=== PATIENT | female | born 1970 | race Caucasian/White ===

== ENCOUNTER → 2019-05-01 | Outpatient (CLI) | payer MEDICAID, SELFPAY ==
[2019-05-01 13:42] VITALS: BMI 21.3
[2019-05-14 11:11] LABS: HPV APTIMA, High Risk Negative (Negative)
== END | disposition home or self-care (01) ==
LOC: LABSPEC 16:15
PROVIDERS: Family Provider Family Medicine; PCP Family Medicine; Referring Provider Nurse Practitioner Women's Health; Visit Provider Nurse Practitioner Women's Health
DX: Z12.4 Encounter for screening for malignant neoplasm of cervix (principal)
CPT/HCPCS: 87624; 88175; G0145

== ENCOUNTER → 2019-05-17 08:07 | Outpatient (CLI) | payer MEDICAID, SELFPAY ==
[2019-05-01 13:42] VITALS: BMI 21.3
--- NOTE | 2019-05-17 08:08 | US_ITS ---
HISTORY:irregular menses irregular menses EXAMINATION: US Pelvis Non OB Complete With Transvaginal Imaging TECHNIQUE: Transabdominal and transvaginal (for optimal evaluation of the adnexa) pelvic ultrasound was performed. Grayscale, spectral waveform, and color flow Doppler evaluation of the adnexa. COMPARISON: None FINDINGS: UTERUS: retroverted. The uterus measures 11.6 x 0.6 x 5.7 cm. Numerous heterogenous areas within the uterus most compatible with uterine fibroids largest measuring 5.0 x 4.7 x 3.5 cm. If additional imaging is warranted consider MRI with contrast for further evaluation. The endometrial stripe measures 9 mm in AP diameter which is within normal limits. RIGHT OVARY: 3.8 x 4.0 x 2.3 cm. there is a 2.4 x 2.9 x 1.7 cm cystic area within the right ovary that has a lacy appearance. This may represent a hemorrhagic cyst.. There is vascular flow seen within the right ovary LEFT OVARY: None visualized due to overlying bowel gas.... Non-enlarged, normal echogenicity. FREE FLUID: None. US/Pelvic (Non ) IMPRESSION: Multiple suspected uterine fibroids. If additional imaging is warranted consider MRI with contrast There is a right ovarian cyst with internal septations. This most likely represents a hemorrhagic cyst. Consider follow-up in 6-12 weeks or sooner if clinically indicated Nonvisualization of left ovary at 0124 Reported and signed by: Ifeoma Khalil DO Electronically Signed: Ifeoma Khalil DO at 1:23 EDT Tel , Service support ,
--- NOTE | 2019-05-17 08:08 | US_ITS ---
HISTORY:irregular menses irregular menses EXAMINATION: US Pelvis Non OB Complete With Transvaginal Imaging TECHNIQUE: Transabdominal and transvaginal (for optimal evaluation of the adnexa) pelvic ultrasound was performed. Grayscale, spectral waveform, and color flow Doppler evaluation of the adnexa. COMPARISON: None FINDINGS: UTERUS: retroverted. The uterus measures 11.6 x 0.6 x 5.7 cm. Numerous heterogenous areas within the uterus most compatible with uterine fibroids largest measuring 5.0 x 4.7 x 3.5 cm. If additional imaging is warranted consider MRI with contrast for further evaluation. The endometrial stripe measures 9 mm in AP diameter which is within normal limits. RIGHT OVARY: 3.8 x 4.0 x 2.3 cm. there is a 2.4 x 2.9 x 1.7 cm cystic area within the right ovary that has a lacy appearance. This may represent a hemorrhagic cyst.. There is vascular flow seen within the right ovary LEFT OVARY: None visualized due to overlying bowel gas.... Non-enlarged, normal echogenicity. FREE FLUID: None. US/Transvaginal Non- IMPRESSION: Multiple suspected uterine fibroids. If additional imaging is warranted consider MRI with contrast There is a right ovarian cyst with internal septations. This most likely represents a hemorrhagic cyst. Consider follow-up in 6-12 weeks or sooner if clinically indicated Nonvisualization of left ovary at 0124 Reported and signed by: Ifeoma Khalil DO Electronically Signed: Ifeoma Khalil DO at 1:23 EDT Tel , Service support ,
== END ==
PROVIDERS: Family Provider Family Medicine; PCP Family Medicine; Referring Provider Nurse Practitioner Women's Health; Visit Provider Nurse Practitioner Women's Health
DX: N92.6 Irregular menstruation, unspecified (principal)
CPT/HCPCS: 76830; 76856

== ENCOUNTER → 2019-05-21 08:23 | Outpatient (CLI) | payer MEDICAID, SELFPAY ==
--- NOTE | 2019-05-21 | EMB_PTH ---
PATIENT: LAMIN JOHNSON LOC: [facility] U#:[id number] AGE/SX: 55/F ROOM: RE05/21/[address]: WILLIE Perez : 1970 BED: DIS: SPEC #: [id number] RECD: 05/21/19 17:23 STATUS: JABIER YARA #: [id number] DANIEL: 05/21/19 00:[address]: Alice Courtney NP DEPT: SURGICAL PATHOLOGY RECD BY: Crescencio Guevara ENTERED: 05/22/19 09:08 SP TYPE: ENDOM BX/C MELLO DR: MD Cem Mcdonough MD Tissues: Endometrium, NOS Procedures: Surgery Specimen Level IV HEADER OPERATION: Endometrial biopsy PRE-OP DIAGNOSIS: Abnormal uterine bleeding TISSUE SUBMITTED: Endometrial biopsy MICROSCOPIC DIAGNOSIS Endometrium, biopsy: Transition endometrium with stromal and focal glandular breakdown. AM:zachary 05/23/19 MICROSCOPIC DESCRIPTION Slides are reviewed. GROSS DESCRIPTION Received is one container labeled with the patient's name and not further designated. The specimen consists of multiple fragments of hemorrhagic soft tissue that in aggregate measure 3 x 2.5 x 0.2 cm. The entire specimen is submitted in one cassette. / SJ:zachary 05/22/19 TC:5 CPT: 59212
[2019-05-21 10:38] VITALS: BMI 21.5
== END ==
PROVIDERS: Family Provider Family Medicine; PCP Family Medicine; Referring Provider Nurse Practitioner Women's Health; Visit Provider Nurse Practitioner Women's Health
DX: N93.9 Abnormal uterine and vaginal bleeding, unspecified (principal)
CPT/HCPCS: 88305

== ENCOUNTER → 2022-08-18 | Outpatient (CLI) | payer MEDICAID, SELFPAY ==
--- NOTE | 2022-08-18 16:08 | BI_ITS ---
MAMMOGRAPHY - BILATERAL SCREENING REASON FOR EXAM: Female, 52 years old. Routine annual screening examination. PERTINENT HISTORY: Sister with breast cancer. Aunt with breast cancer. History of prior right and left excisional breast biopsies. TECHNIQUE: Digital bilateral breast perico (3D mammographic acquisition) in the CC and MLO projections. 2-D mediolateral oblique (MLO) and craniocaudad (CC) views of both breasts were obtained. CAD: Full Field Digital Mammography with Computer Added Detection was performed. COMPARISON: Comparison is made with prior examination dated 01/14/2011. FINDINGS: Breast Composition: The breasts are heterogeneously dense, which may obscure small masses. There are no dominant masses or suspicious calcifications. No other significant abnormalities are identified. There has been no significant change since the prior study. BI/SCRN MAMM (CAD)W/PERICO BILAT IMPRESSION: Stable bilateral screening mammogram. Yearly follow-up mammogram recommended. (A) ASSESSMENT CATEGORY: BIRADS Category 2: Benign. A letter regarding these results will be sent to the patient by the facility within 30 days. Approximately 10% of breast cancers are not detected by mammography. A normal mammogram should not delay biopsy of a clinically suspicious abnormality. [id number] Electronically Signed: Sunny Angeles MD at 8:12 EST ,
== END | disposition home or self-care (01) ==
LOC: OPBI 16:07
PROVIDERS: PCP Family Medicine; Referring Provider Nurse Practitioner Women's Health; Visit Provider Nurse Practitioner Women's Health
DX: Z12.31 Encounter for screening mammogram for malignant neoplasm of breast (principal); Z80.3 Family history of malignant neoplasm of breast
CPT/HCPCS: 77063; 77067

== ENCOUNTER → 2022-08-25 | Outpatient (CLI) | payer MEDICAID, SELFPAY ==
--- NOTE | 2022-08-25 15:10 | EMB_PTH ---
PATIENT: LAMIN JOHNSON LOC: [facility] U#:[id number] AGE/SX: 52/F ROOM: RE08/25/[address]: WILLIE Perez : 1970 BED: DIS: 08/25/2022 SPEC #: [id number] RECD: 08/25/22 16:24 STATUS: JABIER REJorgito #: [id number] DANIEL: 08/25/22 15:[address]: Alice Courtney NP DEPT: SURGICAL PATHOLOGY RECD BY: Crescencio Guevraa ENTERED: 08/26/22 09:12 SP TYPE: ENDOM BX/C MELLO DR: Cem Cadena MD Tissues: Endometrium, NOS Procedures: Surgery Specimen Level IV HEADER OPERATION: Endometrial biopsy PRE-OP DIAGNOSIS: Abnormal uterine bleeding TISSUE SUBMITTED: Endometrial tissue MICROSCOPIC DIAGNOSIS Endometrium, biopsy: Weakly proliferative endometrium. AM:zachary 08/30/2022 MICROSCOPIC DESCRIPTION Slides are reviewed. GROSS DESCRIPTION Received is one container labeled with the patient's name and not further designated. The specimen consists of multiple fragments of hemorrhagic soft tissue that in aggregate measure 2.5 x 2 x 0.2 cm. The specimen is totally submitted in one cassette. / SJ:zachary 08/26/2022 TC:5 CPT: 73581
[2022-09-02 17:33] LABS: HPV APTIMA, High Risk Negative (Negative)
== END | disposition home or self-care (01) ==
PROVIDERS: PCP Family Medicine; Referring Provider Nurse Practitioner Women's Health; Visit Provider Nurse Practitioner Women's Health
DX: N93.9 Abnormal uterine and vaginal bleeding, unspecified (principal)
CPT/HCPCS: 87624; 88175; 88305; G0145

== ENCOUNTER → 2022-08-31 | Outpatient (CLI) | payer MEDICAID, SELFPAY ==
--- NOTE | 2022-08-31 15:43 | US_ITS ---
EXAM: US PELVIS TRANSABDOMINAL AND TRANSVAGINAL, COMPLETE CLINICAL INDICATION: IRREG BLEEDING TECHNIQUE: Transabdominal and transvaginal pelvic ultrasound was performed with grayscale and color Doppler imaging. Transvaginal imaging was used for better evaluation of the endometrium and adnexa. This report was created using [employer] technology. COMPARISON: None. FINDINGS: UTERUS/CERVIX: Uterus measures 7.4 x 6.9 x 7.3 cm. The endometrium measures 5 mm. There are multiple hypoechoic structures within the uterus largest measuring 3.5 x 3.0 x 2.9 cm compatible with multiple uterine fibroids. Anteverted. RIGHT OVARY: Unremarkable. Non-enlarged, normal echogenicity. Blood flow is present in the right ovary. LEFT OVARY: Unremarkable. Non-enlarged, normal echogenicity. Blood flow is present in the left ovary. FREE FLUID: None. BLADDER: The bladder measures 14.1 x 3.6 x 10.4 cm. US/Pelvic (Non ) IMPRESSION: Multiple hypoechoic structures in the uterus compatible with multiple uterine fibroids. Electronically Signed: Prashanth Rice MD at 21:19 EST ,
== END | disposition home or self-care (01) ==
LOC: US 15:41
PROVIDERS: PCP Family Medicine; Referring Provider Nurse Practitioner Women's Health; Visit Provider Nurse Practitioner Women's Health
DX: N92.1 Excessive and frequent menstruation with irregular cycle (principal); D25.9 Leiomyoma of uterus, unspecified
CPT/HCPCS: 76830; 76856

== ENCOUNTER 2022-10-18 05:21 | Day surgery (SDC) | payer MEDICAID, SELFPAY ==
[2022-10-12 10:39] LABS: Hematocrit 40.6 % (37-47); Hemoglobin 12.9 g/dL (12.0-15.0); Mean Corp Hgb Conc 31.8 g/dL (32-36); Mean Corpuscular Hgb 29.1 pg (27.0-32.0); Mean Corpuscular Volume 91.6 fL (81-99); Mean Platelet Vol. 10.7 fl (6.2-12.0); Platelet Count 282 K/mm3 (150-450); RBC Distribution Width CV 13.9 % (11.6-14.6); RBC Distribution Width SD 46.9 fl (35.1-43.9); Red Blood Count 4.43 M/mm3 (4.2-5.4); White Blood Count 7.3 K/mm3 (4.4-11.0)
[2022-10-18] VITALS (7 sets, daily range): BP systolic 114–154; BP diastolic 70–83; PULSE 68–82; RESP 16–18; TEMP 36.4–36.7; O2SAT 94–100; BMI 27.3
[2022-10-18] MEDS: Magnesium 1 GM over 15 mins IV (05:55)
[2022-10-18] MEDS: Lactated Ringers 1,000 ML 40 ML IV (06:09)
[2022-10-18] MEDS: Celecoxib 200 MG Capsule 400 MG PO (06:10)
[2022-10-18] MEDS: Phenazopyridine 95 MG Tablet 190 MG PO (06:10)
[2022-10-18] MEDS: Gabapentin 600 MG Tablet PO (06:11)
[2022-10-18] MEDS: Acetaminophen 500 MG Tablet 1000 MG PO (06:11)
[2022-10-18] MEDS: dexAMETHasone 10 MG/ML Vial 8 MG IV (06:24)
[2022-10-18 06:44] LABS: Internal QC Validated? YES +Cl - CLEAR BKGD; Pregnancy, Serum, hCG Quali. NEGATIVE Negative
[2022-10-18 07:00] LABS: Bedside Glucose 91 mg/dL (74-106)
--- NOTE | 2022-10-18 07:09 | HP.PCM_ITS ---
History and Physical Date of Admission: 10/18/22 Intake Vital Signs ? 09/14/2313:55 09/14/2313:55 Height 5 ft 7 in 5 ft 7 in Weight: 177 lb 2 oz ? BMI 27.7 ? BP 147/85 H ? Intake Visit Reasons:?discuss surgical management Community Health Program Coordinator Required: No Is patient in pain?: No Allergies No Known Allergies Allergy (Verified 09/14/22 14:55) Medications NK? 05/01/19 [History Confirmed 09/14/22] Post menopausal: No Patient : No : No PFSH Surgical History? S/P bilateral breast lumpectomy S/P S/P tubal ligation Family History? Grandfather Heart disease DiabetesGrandmother Heart disease DiabetesAunt Breast cancer Colon cancerMother blood clots Social History? Smoking Status:? Current every day smoker alcohol intake:? never substance use type:? does not use caffeine:? Yes what type of physical activity do you participate in:? none seatbelt use:? always do you feel safe at home:? Yes additional social history:? -[facility] Patient is not working ? HPI discuss surgical management Details: LAMIN JOHNSON is a 52 year old (one for cord prolapse and 4 vaginal delivery) who presents for discussion about hysterectomy. She has a 7 cm uterus with multiple small fibroids (larges 3 cm) and some minor pelvic prolpase without symptoms. She suffers with heavy menses that last anywhere from 1 to 2 weeks at a time and some months she only gets a 1 week break. She is not interested in ablation, IUD, or hormone therapy. EMB last month was benign. She lifts very heavy things for work and is not willing to give that up just yet. ? History ? ? ? 5 ? Elective abortions ? Hx Para ? ? ? 5 ? Spontaneous abortions ? Hx # Term Pregnancies ? Ectopic pregnancies ? Hx # Pregnancies ? Multiple births ? # of living children ? Past Pregnancies Del. Date Name GA/Weeks Outcome Route Bth Weight Infant Gen Labor Lgth Anesthesia Del Locatn Provider FOB Unknown Georgina-1987 ? Unknown Burketara-1988 ? Unknown Ed-1989 ?A ? Unknown Meek-1990 ? Unknown Doris-1991 ? ROS Const ROS Unobtainable: All systems reviewed & are unremarkable except as noted in H Resp Resp: Reports system reviewed and no additional complaints, except as documented; Denies cough GI GI: Reports as per HPI Psych Psych: Reports system reviewed and no additional complaints, except as documented Exam Const General: cooperative, healthy appearing, comfortable and no acute distress Resp Effort & Inspection: normal respiratory effort General: bimanual renal exam normal bilaterally External Female Exam: normal appearance of the urethra Urethra: normal appearance of the urethra Speculum Exam - Vagina: normal appearance of the vagina Speculum Exam - Cervix: normal appearance of the cervix Bimanual Exam- Adnexa, other: normal adnexae and other (mild prolapse of anterior, posterior, and side kelley of the vagina) Skin General: no rashes or lesions noted Psych Appearance: grossly normal Speech and Movement: speech and movement normal Coding Level of Care Code Off vis,est,level 4 Diagnoses Cystocele and rectocele with incomplete uterovaginal prolapse? N81.2 Menorrhagia with irregular cycle? N92.1 Fibroid, uterine? D25.9 ? ? ? Uterine leiomyoma location: unspecified location Assessment and Plan Assessment and Plan (1) Cystocele and rectocele with incomplete uterovaginal prolapse: ?Status:?Acute ?Plan: pt is not yet ready to change her lifestyle and wants to hold off on vaginal repair. (2) Menorrhagia with irregular cycle: ?Status:?Acute (3) Fibroid, uterine: ?Status:?Acute ?Qualifiers: ?Uterine leiomyoma location:?unspecified location? Qualified Code(s):? D25.9 - Leiomyoma of uterus, unspecified ?Plan: After discussing the patient's diagnosis and treatment plan options, patient wishes to proceed with surgical management.? I have discussed with the patient the risks, benefits, and alternatives of the procedure which include but are not limited to risks of anesthesia, bleeding, infection, possible damage to bowel, bladder, or surrounding vasculature which could lead to additional surgery to evaluate any complications.? Patient agrees to procedure and wishes to proceed.? ACOG/uptodate references given for additional information regarding procedure.? plan to proceed with vaginal hysterectomy with cystoscopy. UPDATE- I have seen the patient and performed any clinically relevant updates to the history and physical exam. Roseline Perez, DO
--- NOTE | 2022-10-18 07:10 | PCM.DC ---
Discharge Instructions Diet Discharge Diet: No restrictions Activity Discharge Activity: Return to Normal Activity, May Not Drive (while taking narcotic pain medications.) and May Shower May resume sexual activity in: 6-8 weeks Dressing / Incision Call your doctor if your incision/area has: Continuous Slow Oozing, Sudden Increased Bleeding, Increased Pain/ Swelling, Increased Redness and Foul Smelling Discharge Call your doctor if you observe: Fever of 101 or Higher, Inability to urinate, Inability to have a bowel movement and Using more than 1 pad per hour Follow Up Care Please Follow Up With: Roesline Perez DO Test Results: Test results from this visit will be discussed in further detail at your follow-up appointment, if applicable. Discharge Plan Admission Primary Reason for Your Visit: hysterectomy Attending Provider: Roseline Perez Primary Care Provider: Cem Cadena Instructions Patient Instructions: Hysterectomy Home Care Discharge Orders/Prescriptions Prescriptions: New oxycodone-acetaminophen [Percocet] 5-325 mg tablet 1 tab PO Q4H PRN (Reason: pain) 7 Days Qty: 30 0RF Rx Instructions: 1-2 tabs q 4 hrs as needed for pain naproxen 500 mg tablet 500 mg PO BID PRN (Reason: pain) Qty: 30 0RF Other Ambulatory Orders: ,Urine (Routine) Timeframe: 20221018 Facility: [facility] - Location: Laboratory Ordered By: Dr. Roseline Perez Referrals / Follow Up: Cem Cadena MD [Primary Care Provider] - Disposition Disposition (needs filled in before D/C Order can be placed): Home, Self Care
--- NOTE | 2022-10-18 07:30 | HYST_PTH ---
PATIENT: LAMIN JOHNSON LOC: [facility] U#:[id number] AGE/SX: 52/F ROOM: RE10/18/[address]: Dr. Roseline Perez DO : 1970 BED: DIS: 10/18/2022 SPEC #: [id number] RECD: 10/18/22 12:17 STATUS: JABIER LIVINGSTON #: [id number] DANIEL: 10/18/22 07:[address]: Roseline Perez DEPT: SURGICAL PATHOLOGY RECD BY: Estela Edmond ENTERED: 10/18/22 13:00 SP TYPE: HYSTERECT OTHR DR: Dr. Cem Cadena MD Tissues: Uterus, NOS Procedures: Surgery Specimen Level V HEADER OPERATION: Vaginal hysterectomy, bilateral salpingectomy, cysto, ERAS PRE-OP DIAGNOSIS: Menorrhagia, fibroid uterus TISSUE SUBMITTED: Uterus, cervix, bilateral fallopian tubes, fibroids MICROSCOPIC DIAGNOSIS Uterus, cervix, bilateral fallopian tubes, fibroids, hysterectomy and bilateral salpingectomy: Cervix ? chronic cystic cervicitis and squamous metaplasia. Endometrium ? simple cystic endometrial hyperplasia without atypia. Myometrium ? intramural and subserosal leiomyomas (largest measuring 4.0 in greatest dimension). - Focal adenomyosis. Bilateral fallopian tubes - no pathologic diagnosis. Bilateral paratubal cysts. SJ:rg 10/19/2022 COMMENT Please make reference to previous specimen ([id number]), endometrium, biopsy with diagnosis of ?weakly proliferative endometrium.? MICROSCOPIC DESCRIPTION Slides are reviewed. GROSS DESCRIPTION Received in fixative is one container labeled with the patient's name and designated uterus, fibroid, cervix, bilateral fallopian tubes. The specimen consists of a hysterectomy specimen consisting of uterus with cervix, a detached nodular mass and bilateral detached fallopian tubes. The uterus with detached nodular mass weighs in aggregate 270 gm. The body of the uterus is deformed due to the presence of subserosal nodular masses and measures 14.0 x 10.0 x 8.0 cm. The detached nodular mass measures 2.0 cm in greatest dimension. The serosal surface is pacheco, glistening. The ectocervical mucosa is unremarkable. The external os is oval and patulous in contour. The endocervical canal measures 4.0 cm in length and the endocervical mucosa is pacheco, glistening and unremarkable. Sections of the cervix reveal multiple cysts filled with mucoid material. The triangular endometrial cavity measures 5.0 cm in length and 3.5 cm in width. The endometrium is pacheco, glistening without any mass lesion and measures 0.5 cm in thickness. Sections of the uterine wall reveal multiple intramural and subserosal nodular masses. The largest mass measures 4.0 cm in greatest dimension. Sections of these masses reveal pacheco whorled cut surfaces without areas of hemorrhage, necrosis or cystic degeneration. The uninvolved uterine wall measures up to 4.0 cm in thickness. The detached fallopian tube measures 2.0 cm in length and 0.8 cm in diameter and 3.5 cm in length and 0.5 cm in diameter. The fimbrial end is identified. Sections reveal unremarkable cut surfaces. Paratubal cysts are noted in both fallopian tubes measuring 0.5 to 0.8 cm in greatest dimension. [employer] sections are submitted in 12 cassettes as follows: 1 - anterior cervix, 2 - posterior cervix, 3 & 4 - anterior uterine wall, 5 & 6 - posterior uterine wall, 7 - largest nodular mass, 8??second largest nodular mass, 9 - third largest nodular mass, 10 - detached nodular mass, 11 - one fallopian tube and adjacent paratubal cyst, 12 - second fallopian tube and adjacent paratubal cyst. / SJ:zachary 10/18/2022 TC:1 CPT: 69527
[2022-10-18] MEDS: Cefazolin 2 GM in 0.9% Normal Saline 100 ML IV (07:33)
[2022-10-18] MEDS: Bupivacaine 0.25% 30 ML Vial (07:49)
[2022-10-18] MEDS: Ondansetron 4 MG/2 ML Vial IV (08:54)
[2022-10-18] MEDS: Lactated Ringers @ 70 MLS/HR 70 ML IV (09:20)
--- NOTE | 2022-10-18 09:24 | OP.PCM_ITS ---
Problems Associated Problem List Diagnoses (1) Fibroid, uterine: (2) Menorrhagia with irregular cycle: Report of Operation Date of Procedure: 10/18/22 Pre-Operative Diagnosis: menorrhagia, fibroid uterus Post-Operative Diagnosis: menorrhagia, fibroid uterus Surgery/Procedure Performed:: total vaginal hysterectomy, bilateral salpingectomy, cystoscopy Description of Surgical Findings:: 8 cm fibroid uterus noted. normal bladder on cystoscopy. normal fallopian tubes, left ovarian simple cyst. normal right ovary . Surgeon: Roseline Perez dehydrogenation converter operator: Reginaldo Le Type of Anesthesia: General Anesthesiologist: Ric Ramirez Specimen's removed: uterus, cervix, fallopian tubes, fibroid Estimated Blood Loss (mL): 40cc Description of Procedure: Procedure: The patient was prepped and draped in the usual sterile manner for an abdominal perineal procedure. A weighted speculum was placed in the posterior vaginal vault. A Varma catheter was placed of the urethra without difficulty. The cervix was grasped with a single-tooth tenaculum on both its anterior and posterior lips. With downward traction, a circumferential incision was made on the vaginal mucosa. This allowed dissection and entrance into the posterior cul-de-sac at this time we visualized the uterosacral ligaments. These were clamped and ligated with a #0 Vicryl suture. Cervical vesicle space was then created by both blunt and sharp dissection, allowing us to see the cardinal ligaments. These were clamped and ligated with a #0 Vicryl suture as well. Once in the cervical vesicle space, we were then able to completely ligate the uterosacral cardinal ligament complex with a #0 Vicryl suture. The anterior cul-de-sac was then entered sharply. Omentum and intestines were then visualized through the anterior cul-de-sac window and we began removal of the uterine body. Uterine arteries were then clamped and ligated with a #0 Vicryl suture and carried down towards the uterus until complete removal was obtained. #0 Vicryl suture was used on all major pedicles with Shai clamping. The tubes and ovaries were visualized on either side. The fallopian tubes were clamped with a maura clamp then suture ligated with a #0 Vicryl suture then passed off for patholgy analysis. The entire vaginal vault was visualized We inspected for hemostasis and this was secured. Angled sutures were placed at 3 and 9:00 using #0 Vicryl suture in the usual manner. Once these angled sutures were placed in tension was applied we could see the peritoneum on either side. A modified Moreland's [id number]-oagxsi was pefromed using an 0-vicryl suture through the posterior peritoneum . We closed the peritoneum with a #0 Vicryl in a running continuous manner. Hemostasis was excellent. We irrigated copiously. The sponge count was correct x2 at this time. We began closure of the vaginal mucosa. #0 Vicryl suture was used to close the vaginal mucosa in an interrupted manner, starting at the 9 and 3:00 positions and meeting in the midline. The Varma catheter was then removed. A cystoscopy was performed with a 70 degree cystoscope through the urethra into the bladder without complication. The bladder was instilled with approximately 250 cc of normal saline. Intraoperative images were made. Ureteral orifices and jets were identified. No suture material was appreciated in the bladder. The bladder was then drained and cystoscope was removed. The Varma catheter was then replaced. The patient tolerated the procedure well sponge lap and needle counts were correct x2 and she is now being brought to the recovery room in stable condition Grafts/Implants Used: none Complications none Admit VTE Documentation VTE Present on Admission: Yes VTE Mechan Device Prophylaxis: SCD's VTE Pharm Prophylaxis ordered?: No Multi Select Codes Urinary/Genital Urinary/Genital CPT Codes: 47903 Cystoscopy and 14534 TVH+BS/O <250gr uterus
[2022-10-18] MEDS: HYDROcodone Bitartrate/Apap 5/325 Tablet PO (10:36)
== END 2022-10-18 13:03 | disposition home or self-care (01) ==
LOC: SDC 05:23 → AC 05:23
PROVIDERS: Anesthesiology; PCP Family Medicine; Referring Provider Obstetrics & Gynecology; Visit Provider Obstetrics & Gynecology
PROC: (CPT 58260; principal; 2022-10-18 07:10)
DX: N83.8 Other noninflammatory disorders of ovary, fallopian tube and broad ligament (principal); N85.01 Benign endometrial hyperplasia; D25.1 Intramural leiomyoma of uterus; D25.2 Subserosal leiomyoma of uterus; F17.200 Nicotine dependence, unspecified, uncomplicated
CPT/HCPCS: 58291; 52000; 00944; 36415; 82962; 83735; 84703; 85027; 86850; 86900; 86901; 88307; 93005; J7120; J2405; J3475

== ENCOUNTER → 2023-08-31 | Outpatient (CLI) | payer SELFPAY | END | disposition home or self-care (01) | PROVIDERS: PCP Family Medicine; Referring Provider Obstetrics & Gynecology; Visit Provider Obstetrics & Gynecology | DX: R10.2 Pelvic and perineal pain (principal) | CPT/HCPCS: 87077; 87086; 87088; 87186 ==